=== PATIENT | female | born 1970 | race Two or more races ===

== ENCOUNTER 2024-03-05 14:43 | Outpatient (AMB) | payer OTHER, SELFPAY ==
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
[2024-03-05 14:50] VITALS: BP 128/72; PULSE 96; O2SAT 98; BMI 30.7
== END 2024-03-05 15:35 | disposition home or self-care (01) ==
PROVIDERS: PCP Nurse Practitioner Family; Visit Provider Nurse Practitioner Family
DX: M79.643 Pain in unspecified hand (principal); M79.89 Other specified soft tissue disorders; R76.8 Other specified abnormal immunological findings in serum; M25.50 Pain in unspecified joint
CPT/HCPCS: 99204

== ENCOUNTER → 2024-03-05 14:43 | Outpatient (BNVA) | payer OTHER, SELFPAY | PROVIDERS: PCP Nurse Practitioner Family; Visit Provider Nurse Practitioner Family | DX: M79.643 Pain in unspecified hand (principal); M79.89 Other specified soft tissue disorders; R76.8 Other specified abnormal immunological findings in serum; M25.50 Pain in unspecified joint | CPT/HCPCS: 99202 ==

== ENCOUNTER 2024-04-02 14:47 | Outpatient (AMB) | payer OTHER, SELFPAY ==
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
[2024-04-02 15:03] VITALS: BP 140/104; PULSE 87; O2SAT 98; BMI 30.9
== END 2024-04-02 15:45 | disposition home or self-care (01) ==
PROVIDERS: PCP Nurse Practitioner Family; Visit Provider Nurse Practitioner Family
DX: M79.643 Pain in unspecified hand (principal); M79.89 Other specified soft tissue disorders; M25.50 Pain in unspecified joint; R76.8 Other specified abnormal immunological findings in serum; M54.2 Cervicalgia; M25.519 Pain in unspecified shoulder; E11.69 Type 2 diabetes mellitus with other specified complication
CPT/HCPCS: 99213; G2211

== ENCOUNTER → 2024-04-02 14:47 | Outpatient (BNVA) | payer OTHER, SELFPAY | PROVIDERS: PCP Nurse Practitioner Family; Visit Provider Nurse Practitioner Family | DX: R76.8 Other specified abnormal immunological findings in serum (principal); M79.643 Pain in unspecified hand; M79.89 Other specified soft tissue disorders; M25.50 Pain in unspecified joint; M54.2 Cervicalgia; M25.511 Pain in right shoulder; E11.69 Type 2 diabetes mellitus with other specified complication | CPT/HCPCS: 99212 ==

== ENCOUNTER 2024-05-10 16:00 | Outpatient (AMB) | payer OTHER, SELFPAY ==
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
[2024-05-10 16:04] VITALS: BP 132/72; PULSE 90; BMI 29.6
== END 2024-05-10 16:36 | disposition home or self-care (01) ==
PROVIDERS: PCP Nurse Practitioner Family; Visit Provider Student in an Organized Health Care Education/Training Program
DX: M13.80 Other specified arthritis, unspecified site (principal); Z79.631 Long term (current) use of antimetabolite agent; N96 Recurrent pregnancy loss
CPT/HCPCS: 99215

== ENCOUNTER → 2024-05-10 16:00 | Outpatient (BNVA) | payer OTHER, SELFPAY | PROVIDERS: PCP Nurse Practitioner Family; Visit Provider Student in an Organized Health Care Education/Training Program | DX: M13.80 Other specified arthritis, unspecified site (principal); N96 Recurrent pregnancy loss; Z79.631 Long term (current) use of antimetabolite agent | CPT/HCPCS: 99212 ==

== ENCOUNTER 2025-07-21 13:09 | Outpatient (AMB) | payer OTHER, MEDICAID, SELFPAY ==
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
[2025-07-21 13:42] VITALS: BP 120/90; PULSE 92; O2SAT 99; BMI 31.6
--- OUTSIDE RECORDS SUMMARY | 2025-07-21 17:51 | XMS_ITS | Clinical Summary ---
Author Organization [facility] Address [address] [address] Phone Care Team Providers Care Sand Screener Name Role Phone Paula Munoz NP Primary Care Provider [phone] Allergies Active Allergy Reactions Criticality Noted Date Comments Milk 11/05/2018 Morphine Hives 11/05/2018 Oxycodone-Acetaminophen Hives 11/05/2018 Medications OMEPRAZOLE ORAL 1 capsule Orally Once a day Active metFORMIN (GLUCOPHAGE) 500 MG tablet Take 500 mg by mouth 2 (two) times a day with meals. Active montelukast (SINGULAIR) 10 mg tablet Take 10 mg by mouth nightly. Active albuterol 90 mcg/actuation inhaler Inhale 2 puffs into the lungs every 6 (six) hours as needed for wheezing. Active LORazepam (ATIVAN) 0.5 MG tablet Take 0.5 mg by mouth every 6 (six) hours as needed for anxiety. Active meloxicam (MOBIC) 15 MG tablet Take 15 mg by mouth daily. Active atorvastatin calcium (ATORVASTATIN ORAL) Take by mouth. Active Social History Tobacco Use Types Packs/Day Years Used Date Smoking Tobacco: Passive Smo ke Exposure - Never Smoker Smokeless Tobacco: Never Alcohol Use Standard Drinks/Week Comments Yes 0 (1 standard drink = 0.6 oz pur e alcohol) occasional Education Answer Date Recorded Are you interested in more education? Not on jayce e 02/21/2023 Are you concerned about learning? Not on file 02/21/2023 No 02/21/2023 No 02/21/2023 Digital Access Answer Date Recorded No 03/22/2023 No 03/22/2023 No 03/22/2023 Reliable internet access at home? Not on file 03/22/2023 Device with a working camera? Not on file Comments Unknown Sex and Gender Information Value Date Recorded Sex Assigned at Female 05/25/2021 12:39 PM EDT Legal Sex Female 10:32 PM EDT Gender Identity Female 05/25/2021 12:39 PM EDT Sexual Orientation Choose not to disclose 2020 12:39 PM EDT Last Filed Vital Signs Vital Sign Reading Time Taken Comments Blood Pressure 144/90 04/13/2019 4:45 PM EDT Pulse 62 04/13/2019 4:15 PM EDT Temperature 35.9 C (96.6 F) 04/13/2019 2:41 PM EDT Respiratory Rate 18 04/13/2019 5:00 PM EDT Oxygen Saturation 100% 04/13/2019 4:45 PM EDT Inhaled Oxygen Concentration - - Weight 81.6 kg (180 lb) 04/13/2019 2:41 PM EDT Height 170.2 cm (5' 7 ) 04/13/2019 2:41 PM EDT Body Mass Index 28.19 04/13/2019 2:41 PM EDT Plan of Treatment Health Maintenance Due Date Last Done Comments Adult Td,Tdap Booster 1969 LIPID PANEL 1969 DEPRESSION SCREENING 1981 HEPATITIS C SCREENING 12/31/1987 HIV ONE-TIME SCREENING (18-6 5 YEARS) 12/31/1987 PAP SMEAR 1990 MAMMOGRAM 2009 COLOGUARD 2014 COLONOSCOPY 2014 COLORECTAL CANCER SCREENING 2014 FIT TEST 2014 FOBT 2014 SIGMOIDOSCOPY 2014 VIRTUAL COLONOSCOPY 2014 PNEUMOCOCCAL VACCINES (50+ years) (2 of 2 - PCV) 12/31/2019 05/16/2017 ZOSTER VACCINES (1 of 2) 12/31/2019 CREATININE LEVEL 04/13/2020 04/13/2019 INFLUENZA VACCINE (#1) 2025 0, 09/01/2017, 10/30/2015 COVID-19 VACCINE (2 - 2024-2 6 season) 2025 11/10/2020 SMOKING STATUS SCREENING (On ce After 26 Yrs) Completed 04/13/2019 HEPATITIS A VACCINES Aged Out No long er eligible based on patient's age to complete this topic HIB VACCINES Aged Out No longer eligi ble based on patient's age to complete this topic MENINGOCOCCAL VACCINES (ACWY) Aged Out No longer eligible based on patient's age to complete this topic MENINGOCOCCAL VACCINES (B) Aged Out N o longer eligible based on patient's age to complete this topic Medical Devices Not on file Procedures Procedure Name Priority Date/Time Associated Diagnosis Comments BASIC METABOLIC PANEL STAT 04/13/2019 3:11 PM EDT from Last 3 Months or Most Recently Relevant to Health Maintenance Results * (ABNORMAL) Basic metabolic panel (04/13/2019 3:11 PM EDT) SODIUM 139 133 - 146 mmol/L [facility] CHLORIDE 102 96 - 108 mmol/L [facility] POTASSIUM 3.9 3.3 - 5.1 mmol/L [facility] CO2 26 21 - 35 mmol/L [facility] BUN 11 6 - 19 mg/dL [facility] CREATININE 0.60 0.5 - 1.5 mg/dL [facility] GLUCOSE 112(H) 70 - 99 mg/dL [facility] CALCIUM 9.5 8.4 - 10.3 mg/dL [facility] EGFR 107 >59 mL/min/1.7 3m2 [facility] Comment:If patient is black, multiply result by 1.159. Estimated glomerular filtration rate calculated using the CKD-EPI equation. ANION GAP 15 10 - 20 mmol/L [facility] Blood 04/13/2019 3:11 PM EDT 04/13/2019 3:18 PM EDT us Janes Hernandez MD LAB BLOOD ORDERABLES Final Re sult [facility] [address] [place] [address] from Last 3 Months or Most Recently Relevant to Health Maintenance [place] [address] [address] [place] [address] [employer] Care Teams Sand Screener Relationship Specialty Start Date End Date Paula Munoz NP [address] [place] [id number] PCP - General 10/30/17 Additional Source Comments The information contained in this document represents components of the legal health record. It is not the complete legal health record.[facility]
== END 2025-07-21 15:00 | disposition home or self-care (01) ==
LOC: HO.RHES 13:09
PROVIDERS: PCP Nurse Practitioner Family; Visit Provider Student in an Organized Health Care Education/Training Program
DX: M13.80 Other specified arthritis, unspecified site (principal); Z79.631 Long term (current) use of antimetabolite agent
CPT/HCPCS: 99215